=== PATIENT | male | born 1965 | race Caucasian/White ===

== ENCOUNTER 2020-02-27 13:30 | Inpatient (IN) | payer OTHER ==
[~2020-02-27] VITALS: Ht 175.3 cm; Wt 91.0 kg
[~2020-02-27 13:30] MED LIST: ACET-76 PO; CALC200T3 PO; CELE400C PO; GABA600T7 PO; METH5TAB6 PO
[2020-02-27 14:56] VITALS: BP 139/93
[2020-02-27] MEDS ORDERED: LEVO100T74 PO (14:56)
[2020-03-01] MEDS ORDERED: MIDAZOLAM 1 MG/ML, 2ML ONE (06:53)
[2020-03-01] MEDS ORDERED: FENTANYL PF 100 MCG/2ML ONE ×4 (06:53→09:31)
[2020-03-01] MEDS ORDERED: LACTATED RINGERS 1,000 ML IV SCH (07:00)
[2020-03-01] MEDS ORDERED: CHLORHEXIDINE 15 ML UDC MM ONE (07:00)
[2020-03-01] MEDS ORDERED: DEXAMETHASONE 4 MG/ML, 1ML ONE (08:01)
[2020-03-01] MEDS ORDERED: VASOPRESSIN 20 UNIT/ML, 1ML ONE (08:01)
[2020-03-01] MEDS ORDERED: ONDANSETRON 2MG/ML, 2ML ONE (08:01)
[2020-03-01] MEDS ORDERED: EPHEDRINE 50 MG/ML, 1ML ONE (08:01)
[2020-03-01] MEDS ORDERED: ROCURONIUM 10MG/ML,5ML ONE (08:01)
[2020-03-01] MEDS ORDERED: SUCCINYLCHOLINE 20 MG/ML, 10ML ONE (08:01)
[2020-03-01] MEDS ORDERED: CEFOTETAN 2 GM ONE (08:01)
[2020-03-01] MEDS ORDERED: PROPOFOL 10 MG/ML, 20ML ONE (08:01)
[2020-03-01] MEDS ORDERED: CEFOTETAN PMX 2GM/50ML 50 ML IVPB ONE (08:30)
[2020-03-01] MEDS ORDERED: FENTANYL PF 100 MCG/2ML IV PRN (08:30)
[2020-03-01] MEDS ORDERED: MEPERIDINE/PF 25MG/0.5ML IVPush PRN (08:30)
[2020-03-01] MEDS ORDERED: OXYcodone 5 MG/5 ML ORAL.SOL UDC PO PRN (08:30)
[2020-03-01] MEDS ORDERED: PROMETHAZINE 25 MG/ML, 1ML IVPush PRN (08:30)
[2020-03-01] MEDS ORDERED: BUPIVACAINE/EPI 0.5% 1:200K INFIL ONE (08:48)
[2020-03-01] MEDS ORDERED: PROMETHAZINE 25 MG/ML, 1ML ONE (09:29)
[2020-03-01] MEDS ORDERED: HYDROmorphone 2 MG/ML, 1ML ONE (09:29)
[2020-03-01] MEDS ORDERED: LORazepam 2 MG/ML, 1ML ONE (09:29)
[2020-03-01] MEDS: HYDROmorphone 1 MG/ML, 1ML INJ IVPush PRN ×4 (09:35→10:07)
[2020-03-01] MEDS: LORazepam 2 MG/ML, 1ML IVPush PRN ×2 (09:45→10:00)
[2020-03-01] MEDS ORDERED: METHOCARBAMOL 1,000 MG in DEXTROSE 5% 100 ML IV ONE (10:30)
[2020-03-01] MEDS: HYDROmorphone PCA 30 MG/30 ML IV PRN (10:49)
[2020-03-01 11:10] VITALS: BP 116/75
[2020-03-01] MEDS ORDERED: TEMAZEPAM 15 MG CAPSULE PO PRN (12:00)
[2020-03-01 12:55] VITALS: BP 109/72
[2020-03-01] MEDS: D5%-0.45NACL+KCL 20MEQ 1,000 ML IV SCH (13:40)
[2020-03-01] MEDS: ONDANSETRON 2MG/ML, 2ML IV PRN ×2 (14:23→20:33)
[2020-03-01] MEDS: CEFAZOLIN PMX 1GM/50ML 50 ML IVPB SCH (16:18)
[2020-03-01 18:51] VITALS: BP 118/71
[2020-03-02] MEDS: CEFAZOLIN PMX 1GM/50ML 50 ML IVPB SCH (00:05)
[2020-03-02] MEDS: D5%-0.45NACL+KCL 20MEQ 1,000 ML IV SCH ×3 (00:06→20:03)
[2020-03-02 00:10] VITALS: BP 106/68
[2020-03-02] MEDS: ONDANSETRON 2MG/ML, 2ML IV PRN ×3 (02:20→14:40)
[2020-03-02 04:04] VITALS: BP 98/58
[2020-03-02 05:40] LABS: CHLORIDE 108 mmol/L (98-107)
[2020-03-02 05:55] LABS: ANION GAP 7 mmol/L (5-15); CALCIUM 8.5 mg/dL (8.5-10.1); CREATININE 1.63 mg/dL (0.7-1.3)
[2020-03-02] MEDS: ENOXAPARIN 40 MG/0.4 ML SQ SCH (07:17)
[2020-03-02 07:26] VITALS: BP 111/68
[2020-03-02] MEDS ORDERED: SCOPOLAMINE PATCH, 1.5MG PATCH.TD72 TD ONE (09:30)
[2020-03-02] MEDS: PROMETHAZINE 25MG TABLET PO PRN ×2 (10:00→16:56)
[2020-03-02] MEDS: HYDROmorphone PCA 30 MG/30 ML IV PRN (11:00)
[2020-03-02 13:01] VITALS: BP 113/68
[2020-03-02 21:25] VITALS: BP 97/62
[2020-03-03 02:02] VITALS: BP 107/66
[2020-03-03] MEDS: ONDANSETRON 2MG/ML, 2ML IV PRN ×2 (06:20→11:54)
[2020-03-03] MEDS: D5%-0.45NACL+KCL 20MEQ 1,000 ML IV SCH ×2 (06:23→17:19)
[2020-03-03] MEDS: ENOXAPARIN 40 MG/0.4 ML SQ SCH (06:49)
[2020-03-03 07:21] LABS: ALBUMIN 2.5 g/dL (3.4-5.0); ANION GAP 6 mmol/L (5-15); CALCIUM 8.6 mg/dL (8.5-10.1); CHLORIDE 103 mmol/L (98-107)
[2020-03-03 07:23] LABS: BASOPHILS % (AUTO) 1 % (0-1); EOSINOPHILS % (AUTO) 1 % (1-7); LYMPHOCYTES % (AUTO) 13 % (22-44); MEAN CORPUSCULAR HEMOGLOBIN 25.9 pg (27.5-34.5); MEAN CORPUSCULAR HGB CONC 31.8 g/dL (33.2-36.2); MEAN PLATELET VOLUME 7.9 fL (7.4-10.4); MONOCYTES % (AUTO) 11 % (2-9); NEUTROPHILS % (AUTO) 75 % (42-75); PLATELET COUNT 515 x10^3/uL (130-400); RED BLOOD COUNT 4.17 x10^6/uL (4.38-5.82); RED CELL DISTRIBUTION WIDTH 15.6 % (9.4-14.8)
[2020-03-03 07:24] LABS: MD NO
[2020-03-03 07:26] LABS: ALANINE AMINOTRANSFERASE 52 U/L (12-78); ALKALINE PHOSPHATASE 61 U/L (45-117); BILIRUBIN,TOTAL 0.3 mg/dL (0.2-1.0); CREATININE 1.65 mg/dL (0.7-1.3); TOTAL PROTEIN 6.7 g/dL (6.4-8.2)
[2020-03-03 07:32] VITALS: BP 102/70
[2020-03-03 13:28] VITALS: BP 115/79
[2020-03-03 19:12] VITALS: BP 113/78
[2020-03-03] MEDS: PROMETHAZINE 25MG TABLET PO PRN (19:22)
[2020-03-04 01:30] VITALS: BP 99/57
[2020-03-04] MEDS: D5%-0.45NACL+KCL 20MEQ 1,000 ML IV SCH ×3 (02:58→23:23)
[2020-03-04 05:53] LABS: BASOPHILS % (AUTO) 1 % (0-1); EOSINOPHILS % (AUTO) 4 % (1-7); LYMPHOCYTES % (AUTO) 13 % (22-44); MEAN CORPUSCULAR HEMOGLOBIN 25.5 pg (27.5-34.5); MEAN CORPUSCULAR HGB CONC 32.1 g/dL (33.2-36.2); MEAN PLATELET VOLUME 7.9 fL (7.4-10.4); MONOCYTES % (AUTO) 12 % (2-9); NEUTROPHILS % (AUTO) 71 % (42-75); PLATELET COUNT 500 x10^3/uL (130-400); RED BLOOD COUNT 4.21 x10^6/uL (4.38-5.82); RED CELL DISTRIBUTION WIDTH 15.6 % (9.4-14.8)
[2020-03-04 05:57] LABS: CHLORIDE 102 mmol/L (98-107)
[2020-03-04] MEDS: LEVOTHYROXINE 100 MCG TABLET PO SCH ×2 (06:00→08:01)
[2020-03-04 06:03] LABS: ANION GAP 4 mmol/L (5-15); CALCIUM 8.6 mg/dL (8.5-10.1); CREATININE 1.53 mg/dL (0.7-1.3)
[2020-03-04] MEDS: HYDROmorphone PCA 30 MG/30 ML IV PRN (06:10)
[2020-03-04 06:18] LABS: MD NO
[2020-03-04] MEDS: ENOXAPARIN 40 MG/0.4 ML SQ SCH (06:38)
[2020-03-04 07:42] VITALS: BP 106/69
[2020-03-04] MEDS ORDERED: ACETAMINOPHEN 325 MG TABLET PO PRN (10:00)
[2020-03-04] MEDS: PROMETHAZINE 25MG TABLET PO PRN (12:58)
[2020-03-04 14:22] VITALS: BP 126/83
[2020-03-04 19:45] VITALS: BP 102/69
[2020-03-05 02:50] VITALS: BP 89/62
[2020-03-05] MEDS: PROMETHAZINE 25MG TABLET PO PRN ×5 (05:16→21:05)
[2020-03-05 05:32] LABS: ANION GAP 3 mmol/L (5-15); CALCIUM 8.3 mg/dL (8.5-10.1); CHLORIDE 105 mmol/L (98-107); CREATININE 1.32 mg/dL (0.7-1.3)
[2020-03-05 06:59] VITALS: BP 97/65
[2020-03-05] MEDS: ENOXAPARIN 40 MG/0.4 ML SQ SCH (07:20)
[2020-03-05] MEDS: D5%-0.45NACL+KCL 20MEQ 1,000 ML IV SCH ×2 (09:28→20:57)
[2020-03-05] MEDS: OXYcodone/APAP 5/325MG TABLET PO PRN ×2 (13:21→19:28)
[2020-03-05 14:48] VITALS: BP 107/59
[2020-03-05] MEDS: HYDROmorphone 1 MG/ML, 1ML INJ IV PRN ×2 (18:01→22:01)
[2020-03-05 20:17] VITALS: BP 126/82
[2020-03-06 01:14] VITALS: BP 107/71
[2020-03-06] MEDS: OXYcodone/APAP 5/325MG TABLET PO PRN ×4 (01:15→23:17)
[2020-03-06] MEDS: ONDANSETRON 2MG/ML, 2ML IV PRN (04:57)
[2020-03-06] MEDS: HYDROmorphone 1 MG/ML, 1ML INJ IV PRN ×2 (04:57→10:41)
[2020-03-06 05:32] LABS: ANION GAP 4 mmol/L (5-15); CALCIUM 8.9 mg/dL (8.5-10.1); CHLORIDE 104 mmol/L (98-107); CREATININE 1.34 mg/dL (0.7-1.3)
[2020-03-06] MEDS: LEVOTHYROXINE 100 MCG TABLET PO SCH (06:33)
[2020-03-06] MEDS: ENOXAPARIN 40 MG/0.4 ML SQ SCH (06:33)
[2020-03-06 07:33] VITALS: BP 111/75
[2020-03-06] MEDS: D5%-0.45NACL+KCL 20MEQ 1,000 ML IV SCH ×2 (08:20→19:05)
[2020-03-06] MEDS ORDERED: DOCUSATE 100 MG CAPSULE ONE (08:29)
[2020-03-06] MEDS: DOCUSATE 50 MG/5 ML, 10ML UDC PO SCH ×2 (08:31→20:07)
[2020-03-06] MEDS: PROMETHAZINE 25MG TABLET PO PRN (10:40)
[2020-03-06 12:42] VITALS: BP 114/73
[2020-03-06] MEDS ORDERED: LIOT5TAB10 PO (18:38)
[2020-03-06 20:09] VITALS: BP 110/67
[2020-03-07 01:43] VITALS: BP 106/69
[2020-03-07] MEDS: D5%-0.45NACL+KCL 20MEQ 1,000 ML IV SCH (03:49)
[2020-03-07] MEDS: LEVOTHYROXINE 100 MCG TABLET PO SCH (05:57)
[2020-03-07] MEDS: OXYcodone/APAP 5/325MG TABLET PO PRN ×3 (05:58→21:18)
[2020-03-07] MEDS: ENOXAPARIN 40 MG/0.4 ML SQ SCH (05:59)
[2020-03-07 06:54] LABS: ANION GAP 5 mmol/L (5-15); CALCIUM 8.3 mg/dL (8.5-10.1); CHLORIDE 110 mmol/L (98-107); CREATININE 1.39 mg/dL (0.7-1.3)
[2020-03-07 07:27] VITALS: BP 132/87
[2020-03-07] MEDS: DOCUSATE 50 MG/5 ML, 10ML UDC PO SCH ×2 (08:31→21:17)
[2020-03-07] MEDS: PROMETHAZINE 25MG TABLET PO PRN ×2 (08:52→18:23)
[2020-03-07 14:13] VITALS: BP 145/88
[2020-03-07] MEDS: HYDROmorphone 1 MG/ML, 1ML INJ IV PRN (18:10)
[2020-03-07 21:03] VITALS: BP 133/86
[2020-03-07] MEDS: SODIUM CHLORIDE FLUSH 3ML SYRINGE IVF SCH (21:18)
[2020-03-08 03:45] VITALS: BP 127/80
[2020-03-08] MEDS: OXYcodone/APAP 5/325MG TABLET PO PRN ×2 (03:49→13:25)
[2020-03-08] MEDS: ONDANSETRON 2MG/ML, 2ML IV PRN ×2 (03:55→13:25)
[2020-03-08 05:08] LABS: ANION GAP 7 mmol/L (5-15); CALCIUM 8.4 mg/dL (8.5-10.1); CHLORIDE 108 mmol/L (98-107)
[2020-03-08 05:10] LABS: CREATININE 1.45 mg/dL (0.7-1.3)
[2020-03-08] MEDS: LEVOTHYROXINE 100 MCG TABLET PO SCH (05:51)
[2020-03-08] MEDS: ENOXAPARIN 40 MG/0.4 ML SQ SCH (05:53)
[2020-03-08 08:08] VITALS: BP 121/76
[2020-03-08] MEDS: DOCUSATE 50 MG/5 ML, 10ML UDC PO SCH (08:40)
[2020-03-08] MEDS: SODIUM CHLORIDE FLUSH 3ML SYRINGE IVF SCH (09:21)
[2020-03-08] MEDS ORDERED: MAGNESIUM HYDROXIDE 8%, 30ML UDC PO SCH ×2 (10:30)
[2020-03-08] MEDS ORDERED: OXYC-302 PO (11:39)
[2020-03-08] MEDS ORDERED: PROM25AM6 PO (11:40)
[2020-03-08 12:57] VITALS: BP 119/78
== END 2020-03-08 14:30 | disposition home or self-care (01) | DRG 828 ==
LOC: ORIP 03-01 05:38 → EDSTATUS 03-01 07:30 → 4NE 03-01 11:04
PROVIDERS: ADMIT Surgery; ATTEND Surgery
PROC: 0TT00ZZ Resection of Right Kidney, Open Approach (ICD-10-PCS; 2020-03-01)
PROC: 07BD0ZZ Excision of Aortic Lymphatic, Open Approach (ICD-10-PCS; 2020-03-01)
PROC: 0GT30ZZ Resection of Right Adrenal Gland, Open Approach (ICD-10-PCS; principal; 2020-03-01 07:30)
PROC: 0WBH0ZZ Excision of Retroperitoneum, Open Approach (ICD-10-PCS; 2020-03-01 07:30)
DX: C48.0 Malignant neoplasm of retroperitoneum (principal); R19.09 Other intra-abdominal and pelvic swelling, mass and lump
CPT/HCPCS: 36415; Q0169; 80048; 80053; 85014; 85018; 85025; 86850; 86900; 86923; 87635; 88305; 88307; 93005; G0378; J0690; J1100; J1170; J1650; J2250; J2405; J2550; J2704; J3010; C1760; J0330; J2060; J2800; J3480; J7120